=== PATIENT | male | born 1935 | race Caucasian/White ===

== ENCOUNTER 2016-12-27 06:44 | Day surgery (SDC) | payer MEDICARE, OTHER ==
--- NOTE | 2016-12-20 07:31 | HP ---
DATE OF ADMISSION: 12/27/2016 HISTORY OF PRESENT ILLNESS: This is a 81-year-old male being brought in on an outpatient basis for removal of a painful osteoarthritis, exostosis formation of the left thumb. The patient had suffered injury approximately 34 years ago. He gradually had developed an increasing swelling problem, where the mass was formed, causing positive mechanical irritation and pain with any type of movement. He was evaluated through Orthopedic [facility] and after evaluation, the patient is now being scheduled for the removal of the bone spur or mass. The procedure has been outlined to him. He understands the procedure and has consented to it. ALLERGIES: No known drug allergies. PAST MEDICAL HISTORY: He has been a relatively healthy 81-year-old male with a history of high blood pressure. He also stated that he had an ulcer history. CURRENT MEDICATIONS: The patient is on hydrochlorothiazide, losartan, and timolol. PAST SURGICAL HISTORY: Surgical history is positive. He has had previous total knee replacements in 2009. He has also had ear surgery. He notes no anesthesia complications or problems. He has a negative bleeding history and negative blood clot history. SOCIAL HISTORY: He is a nonsmoker. Alcohol is rarely. PHYSICAL EXAMINATION: GENERAL: Today, reveals a well-developed and well-nourished 81-year-old male in mild distress. HEAD, EYES, EARS, NOSE, AND THROAT: Normocephalic. NECK: Supple. CHEST: Clear. COR: Regular rate. ABDOMEN: Soft. : Intact. MUSCULOSKELETAL: Examination of left hand reveals a very large mass formation over the IP joint of the left thumb, that is mildly painful from pressure. Skin is intact. The prominence of the mass, which was approximately 1 cm in diameter and height causing significant mechanical problems. ASSESSMENT: Osteoarthritis with bone spur formation, IP joint, left thumb. PLAN: Plan is for the patient to undergo scheduled surgical excision of the osteoarthritis, bone spur, left thumb. The procedure has been outlined to the patient. He understands the risks and complications involved with that and has consented to surgery. JANET /[id number]
[~2016-12-27 06:44] MED LIST: Lactated Ringers 1,000 ML IV SCH; Lidocaine 1%/Sod Bicarbonate in NS 8.4% 1 ML Syringe PRN; Sodium Chloride 0.9% 10 ML Syringe FLUSH PRN
[2016-12-27] MEDS ORDERED: Propofol 200 MG/20 ML SDV ONE (07:16)
[2016-12-27] MEDS ORDERED: Lidocaine 0.5% 50 ML SDV ONE (07:16)
[2016-12-27] MEDS ORDERED: ceFAZolin 1 GM Vial ONE (07:16)
[2016-12-27] MEDS ORDERED: Sodium Bicarbonate 8.4% 50 MEQ/50 ML SDV ONE (07:16)
--- NOTE | 2016-12-27 07:24 | PCM.PREANE ---
Preanesthetic Assessment - Anesthesia/Transfusion/Family Hx Anesthesia History: Prior Anesthesia Without Reaction Family History of Anesthesia Reaction: No Transfusion History: Prior Transfusion Without Reaction - Review of Systems General: No Symptoms Pulmonary: No Symptoms Cardiovascular: No Symptoms Gastrointestinal: Other (hx of gastritis and ulcers) Neurological: No Symptoms Other: Reports: Diabetes (seeing doctor for meds) - Physical Assessment NPO Status Date: 12/26/16 NPO Status Time: 18:00 Pulse: 64 O2 Sat by Pulse Oximetry: 94 Respiratory Rate: 16 Blood Pressure: 147/63 Temperature: 36.6 C Height: 1.65 m Weight: 95.663 kg ASA Class: 2 Mental Status: Alert & Oriented x3 Airway Class: Mallampati = 2 Dentition: Reports: Dentures (upper), Partial (lower) Thyro-Mental Finger Breadths: 3 Mouth Opening Finger Breadths: 3 ROM/Head Extension: Limited/Partial Lungs: Clear to Auscultation, Normal Respiratory Effort Cardiovascular: Regular Rate, Regular Rhythm - Allergies Allergies/Adverse Reactions: Allergies Allergy/AdvReac Type Severity Reaction Status Date / Time aspirin Allergy Bleeding Verified 12/26/16 15:19 - Blood Blood Available: No Product(s) Available: None - Anesthesia Plan Pre-Op Medication Ordered: None Beta Kaci: Timolol Med Last Dose Date: 12/27/16 Med Last Dose Time: 05:45 - Acknowledgements Anesthesia Type Planned: NINFA Pt an Appropriate Candidate for the Planned Anesthesia: Yes Alternatives and Risks of Anesthesia Discussed w Pt/Guardian: Yes Pt/Guardian Understands and Agrees with Anesthesia Plan: Yes PreAnesthesia Questionnaire HEENT History: Reports: Hard of Hearing, Other (See Below) Other HEENT History: wears glasses Cardiovascular History: Reports: Hypertension Respiratory History: Reports: None Gastrointestinal History: Reports: Gastritis, GI Bleed, Other (See Below) Other Gastrointestinal History: stomach ulcers Genitourinary History: Musculoskeletal History: Reports: Arthritis Neurological History: Reports: None Psychiatric History: Reports: None Endocrine/Metabolic History: Reports: Diabetes, Type II, Vitamin D Deficiency Hematologic History: Reports: Blood Transfusion(s) Immunologic History: Reports: None Oncologic (Cancer) History: Reports: None Dermatologic History: Reports: None - Past Surgical History HEENT Surgical History: Reports: Other (See Below) Other HEENT Surgeries/Procedures: inner ear surgery Cardiovascular Surgical History: Reports: None Respiratory Surgical History: Reports: None GI Surgical History: Reports: Colonoscopy, EGD Male Surgical History: Reports: None Endocrine Surgical History: Reports: None Neurological Surgical History: Reports: None Musculoskeletal Surgical History: Reports: None, Knee Replacement Other Musculoskeletal Surgeries/Procedures:: bilateral knee replacements Oncologic Surgical History: Reports: None Dermatological Surgical History: Reports: None - SUBSTANCE USE Smoking Status *Q: Former Smoker Tobacco Use Within Last Twelve Months: Cigarettes Second Hand Smoke Exposure: No Days Per Week of Alcohol Use: 0 Recreational Drug Use History: No - HOME MEDS Home Medications: Home Meds Cinnamon Bark [Cinnamon] 1,000 mg PO DAILY 04/14/14 [History] Hydrochlorothiazide 25 mg PO DAILY 04/14/14 [History] Losartan [Cozaar] 50 mg PO DAILY 04/14/14 [History] Multivitamin [Multi-Vitamin Daily] 1 tab PO DAILY 04/14/14 [History] Timolol Maleate [Timoptic-XE 0.5% Ophth Gel] 1 drop EYEBOTH BID 04/14/14 [ History] Ca Carbonate/Vitamin D3/Vit K [Calcium + D Soft Chewable Tab] 1 tab PO DAILY [History] Cholecalciferol (Vitamin D3) [Vitamin D3] 2,000 unit PO DAILY 12/26/16 [History] - CURRENT (IN HOUSE) MEDS Current Meds: Current Medications Lactated Ringer's (Ringers, Lactated) 1,000 mls @ 125 mls/hr IV ASDIRECTED BRENDAN Stop: 12/27/16 23:00 Lidocaine/Sodium Bicarbonate (Buffered Lidocaine 1% In Ns 8.4%) 0.25 ml .XX ONETIME PRN PRN Reason: Prior to IV Start Stop: 12/27/16 18:00 Sodium Chloride (Saline Flush) 10 ml FLUSH ASDIRECTED PRN PRN Reason: Keep Vein Open Stop: 12/27/16 18:00 Discontinued Medications Cefazolin Sodium (Ancef) Confirm Administered Dose 2 gm .ROUTE .STK-MED ONE Stop: 12/27/16 07:17 Lidocaine HCl (Xylocaine-Mpf 0.5%) Confirm Administered Dose 50 ml .ROUTE .STK- MED ONE Stop: 12/27/16 07:17 Propofol (Diprivan 20 Ml) Confirm Administered Dose 200 mg .ROUTE .STK-MED ONE Stop: 12/27/16 07:17 Sodium Bicarbonate (Sodium Bicarbonate 8.4%) Confirm Administered Dose 50 meq .ROUTE .STK-MED ONE Stop: 12/27/16 07:17
[2016-12-27] MEDS ORDERED: Ondansetron 4 MG/2 ML SDV IVPUSH PRN (07:37)
[2016-12-27] MEDS ORDERED: Acetaminophen/Codeine 300-30 MG Tab PO PRN (07:37)
[2016-12-27] MEDS ORDERED: Ketorolac 15 MG/ML SDV IVPUSH PRN (07:37)
[2016-12-27] MEDS ORDERED: fentaNYL 100 MCG/2 ML SDV ONE (08:05)
[2016-12-27] MEDS ORDERED: fentaNYL 100 MCG/2 ML SDV IVPUSH PRN (08:17)
[2016-12-27] MEDS ORDERED: Lidocaine 1% 30 ML SDV ONE (08:39)
--- NOTE | 2016-12-27 09:24 | PCM48HPAN ---
Post Anesthesia Note - EVALUATION WITHIN 48HRS OF ANESTHETIC Vital Signs in Normal Range: Yes Patient Participated in Evaluation: Yes Respiratory Function Stable: Yes Airway Patent: Yes Cardiovascular Function Stable: Yes Hydration Status Stable: Yes Pain Control Satisfactory: Yes Nausea and Vomiting Control Satisfactory: Yes Mental Status Recovered: Yes
[2016-12-27 09:58] VITALS: BP 123/65
--- NOTE | 2016-12-27 12:43 | OR ---
DATE OF OPERATION: 12/27/2016 SURGEON: Eddy Samson MD PREOPERATIVE DIAGNOSIS: Mass, IP joint, left thumb. POSTOPERATIVE DIAGNOSIS: 1. Bony mass, IP joint, left thumb. 2. Old extensor tendon avulsion fracture, IP joint, left thumb. The size of the mass was 1 cm x 1 cm. ANESTHESIA: Sedation with local 1% lidocaine and Marisol block. OPERATION PERFORMED: 1. Excision of bony mass, 1 cm x 1 cm, IP joint, left thumb. 2. Repair of extensor tendon with K-wire stabilization, distal phalanx, proximal phalanx, left thumb. DESCRIPTION OF PROCEDURE: The patient was taken to the operative room in supine position. He was placed under a light sedation with Marisol block anesthesia to the left upper extremity. After adequate anesthesia, the operation proceeded with initial evaluation of the mass formation over the IP joint of left thumb. The incision was placed on a dorsal medial side, going directly over the mass formation. Penetration was made through the skin and subcutaneous tissues. These were dissected sharply down to the mass formation, which was felt to be an exostosis formation, and this was developed and outlined. A note on the formation, once the mass was firmly identified, it was found to be movable. Sharp dissection was carried down on all sides to remove the large bony fragment, which was creating a major mechanical irritation to the patient. Once that was removed, the bone spurs were then trimmed down smooth and then checked with palpation. Then, the operation proceeded with evaluation. It was found that the mass formation was an old avulsion fracture of the extensor tendon of the thumb, which had then developed into a large bony mass formation itself. With the dissection, the extensor tendon was peeled off the mass formation, and the remaining stump was then evaluated. A 5-0 Prolene was then used to reattach the extensor tendon to the base area on the left thumb with major attachment to the ulnar side. Once that was completed, the operation then proceeded with evaluation. It was felt that to stabilize this IP joint extensor tendon repair, a K-wire was then inserted in a retrograde fashion through the distal phalanx to the proximal phalanx. Once in place, the operation then proceeded with thorough irrigation of the wound area. The skin was closed with 5-0 Prolene. The patient was placed in standard dressings and a thumb spica splint. He tolerated this whole procedure well. He left the operating room in a stable condition to his room for recovery. ESTIMATED BLOOD LOSS: JANET /[id number]
--- NOTE | 2016-12-28 08:16 | CR ---
Left thumb: Two fluoroscopic spot views were obtained of the left thumb utilizing C-arm device. Comparison: No previous study. Study shows placement of a longitudinal pin through the IP joint of the thumb. Fluoroscopy time given as 12.4 seconds. Impression: 1. Operative study as described above. Diagnostic code #2
== END 2016-12-27 10:17 | disposition home or self-care (01) ==
LOC: JD.SDS 06:44
PROVIDERS: ATTEND Specialist
DX: M89.9 Disorder of bone, unspecified (principal); I10 Essential (primary) hypertension; E11.9 Type 2 diabetes mellitus without complications; E55.9 Vitamin D deficiency, unspecified; Z79.899 Other long term (current) drug therapy; Z98.890 Other specified postprocedural states; Z68.34 Body mass index [BMI] 34.0-34.9, adult; Z87.891 Personal history of nicotine dependence; Z88.8 Allergy status to other drugs, medicaments and biological substances; Z96.653 Presence of artificial knee joint, bilateral
CPT/HCPCS: 26210; 26756; 76000; 82962; C1769; J0690; J3010; J7120; 00400; J2704

== ENCOUNTER 2025-02-07 17:16 | Emergency (ER) | payer OTHER ==
[2025-02-07 18:02] LABS: BASOPHILS ABSOLUTE AUTO 0.2 K/mm3 (0.0-0.2); BASOPHILS PERCENT AUTO 1.6 % (0.0-1.0); EOSINOPHILS ABSOLUTE AUTO 0.2 K/mm3 (0.0-0.4); EOSINOPHILS PERCENT AUTO 1.9 % (0.0-6.0); IMMATURE GRAN ABSOLUTE AUTO 0.51 K/mm3 (0.00-0.05); IMMATURE GRAN PERCENT AUTO 5.3 % (0.0-0.4); LYMPHOCYTES ABSOLUTE AUTO 1.4 K/mm3 (1.0-4.8); LYMPHOCYTES PERCENT AUTO 14.3 % (24.0-44.0); MEAN PLATELET VOLUME 10.3 fl (9.4-12.4); MONOCYTES ABSOLUTE AUTO 0.6 K/mm3 (0.0-0.8); MONOCYTES PERCENT AUTO 5.9 % (0.0-8.0); NEUTROPHILS ABSOLUTE AUTO 6.8 K/mm3 (1.8-7.7); NEUTROPHILS PERCENT AUTO 71.0 % (41.0-71.0); NRBC ABSOLUTE 0.05 (0.00-0.02); NRBC PERCENT 0.5 % (0.0-0.2); PLATELET COUNT,PLT 251 K/mm3 (150-400); RED BLOOD CELL COUNT 2.06 M/mm3 (4.52-5.90); WHITE BLOOD CELL COUNT,WBC 9.54 K/mm3 (3.9-11.3)
[2025-02-07 18:12] LABS: A/G RATIO 1.0 (1-2); ALANINE AMINOTRANSFERASE,ALT 50.0 U/L (16-63); ASPARTATE AMNIOTRANSFERASE,AST 43.0 U/L (15-37); BILIRUBIN TOTAL 0.4 mg/dL (0.2-1.0); BLOOD UREA NITROGEN,BUN 27.0 mg/dL (7-18); CARBON DIOXIDE,CO2 28.0 mEq/L (21-32); CHLORIDE,CL 99.0 mEq/L (98-107); CREATININE 1.7 mg/dL (0.7-1.3); EST CRCL DRUG DOSING (CG) 28.62 mL/min; ESTIMATED GFR 39.0 mL/min (>60); GLUCOSE RANDOM 333.0 mg/dL (70-99); POTASSIUM,K 4.7 mEq/L (3.5-5.1); PROTEIN TOTAL,TP 6.4 g/dl (6.4-8.2); SODIUM,NA 134.0 mEq/L (136-145)
[2025-02-07] MEDS ORDERED: Sodium Chloride 0.9% 10 ML Syringe FLUSH PRN (18:22)
[2025-02-07] MEDS: Sodium Chloride 0.9% 10 ML Syringe FLUSH PRN (18:50)
[2025-02-07] MEDS: Iopamidol 755 Mg/ML 100 ML Bottle IVPUSH ONE (18:50)
[2025-02-07 20:21] LABS: APPEARANCE,URINE CLEAR (Clear); GLUCOSE,URINE 2+ (Negative); OCCULT BLOOD,URINE NEGATIVE (Negative)
[2025-02-08 07:54] VITALS: BP 123/51; PULSE 72
== END 2025-02-08 07:45 ==
LOC: JD.ED 17:16
DX: D64.9 Anemia, unspecified (principal); I10 Essential (primary) hypertension; E11.9 Type 2 diabetes mellitus without complications; Z88.8 Allergy status to other drugs, medicaments and biological substances; Z79.899 Other long term (current) drug therapy
CPT/HCPCS: 36415; 36430; 71045; 72191; 74175; 80053; 81003; 82947; 83690; 84484; 85025; 86850; 86900; 86901; 86922; 93005; 96365; 96366; 99285; J2470; J7030; P9016; Q9967